=== PATIENT | male | born 1975 | race Caucasian/White ===

== ENCOUNTER 2020-09-09 09:57 | Inpatient (IN) | payer MEDICAID ==
[~2020-09-09] VITALS: Ht 175.3 cm; Wt 108.5 kg
[2020-09-09 11:16] LABS: BASOPHILS % (AUTO) 0.6 % (0.0-2.0); EOSINOPHILS % (AUTO) 0.3 % (1.0-6.0); HEMATOCRIT 40.1 % (41-53); HEMOGLOBIN 13.7 g/dL (13.5-17.5); LYMPHOCYTES # (AUTO) 1.2 K/uL (1.0-4.8); LYMPHOCYTES % (AUTO) 8.9 % (22.0-44.0); MEAN CORPUSCULAR HEMOGLOBIN 25.5 pg (26.0-34.0); MEAN CORPUSCULAR HGB CONC 34.1 G/dL (31.0-37.0); MEAN CORPUSCULAR VOLUME 75 fL (80-100); MONOCYTES # (AUTO) 0.9 K/uL (0.1-1.0); MONOCYTES % (AUTO) 6.3 % (2.0-9.0); NEUTROPHILS # (AUTO) 11.5 K/uL (1.8-7.7); NEUTROPHILS % (AUTO) 83.9 % (40.0-70.0); PLATELET COUNT (AUTO) 386 K/uL (150-450); RED BLOOD CELL COUNT(AUTO) 5.37 MIL/uL (4.50-5.90); RED CELL DISTRIBUTION WIDTH 17.2 % (11.5-14.5)
[2020-09-09 11:27] LABS: ANION GAP 9 mmol/L (8-16); CALCIUM, TOTAL 9.2 mg/dL (8.8-10.5); CARBON DIOXIDE 23 mmol/L (22-29); CHLORIDE 106 mmol/L (98-107); CREATININE 0.74 mg/dL (0.60-1.30); GLOMERULAR FILTR. RATE CALC > 60 mL/min (>60); GLUCOSE,RANDOM 124 mg/dL (70-110); POTASSIUM 3.2 mmol/L (3.5-5.1); SODIUM SERUM 138 mmol/L (136-145); UREA NITROGEN, BLOOD 11 mg/dL (7-18)
[2020-09-09 11:33] LABS: ALANINE AMINOTRANSFERASE 31 U/L (12-78); ALKALINE PHOSPHATASE 114 U/L (46-116); ASPARTATE AMINOTRANSFERASE 25 U/L (15-37); BILIRUBIN,TOTAL 0.6 mg/dL (0.1-1.0); TOTAL PROTEIN, SERUM 7.3 g/dL (6.4-8.2)
[2020-09-09] MEDS: POTASSIUM CHLORIDE 10% 40 MEQ/30 ML LIQUID UDCUP PO ONE ×2 (12:04→12:08)
[2020-09-09 14:39] LABS: COVID AG,FIA SOURCE NASOPHARYNGEAL
[2020-09-09] MEDS ORDERED: HALOPERIDOL LACTATE 5 MG/ML VIAL IM ONE (17:45)
[2020-09-09] MEDS ORDERED: LORazepam 2 MG/ML VIAL IM ONE (17:45)
[2020-09-09] MEDS ORDERED: DiphenhydrAMINE HCL 50 MG/ML VIAL IM ONE (17:45)
[2020-09-09] MEDS: HALOPERIDOL 5 MG TABLET PO PRN (22:30)
[2020-09-09] MEDS: LORazepam 2 MG TABLET PO PRN (22:30)
[2020-09-10] MEDS ORDERED: MIDAZOLAM HCL 5 MG/ML VIAL IM ONE (00:15)
[2020-09-10] MEDS: LORazepam 2 MG TABLET PO PRN ×3 (03:24→22:53)
[2020-09-10] MEDS: HALOPERIDOL 5 MG TABLET PO PRN ×2 (03:24→07:57)
[2020-09-10 03:42] VITALS: BP 144/77
[2020-09-10] MEDS ORDERED: MAGNESIUM HYDROXIDE SUSPENSION 30 ML UDCUP PO PRN (08:00)
[2020-09-10] MEDS ORDERED: LOPERAMIDE HCL 2 MG CAPSULE PO PRN (08:00)
[2020-09-10] MEDS ORDERED: PETROLATUM,WHITE 28 GM JELLY TP PRN (08:00)
[2020-09-10] MEDS ORDERED: NICOTINE 14 MG/24 HOUR PATCH TD PRN (08:00)
[2020-09-10] MEDS ORDERED: CloNIDine HCL 0.1 MG TABLET PO PRN (08:00)
[2020-09-10] MEDS ORDERED: DOCUSATE SODIUM 100 MG CAPSULE PO PRN (08:00)
[2020-09-10] MEDS ORDERED: GuaiFENesin/D-METHORPHAN [SUGAR-FREE] 200-20MG/10 ML SYRUP UDCUP PO PRN (08:00)
[2020-09-10] MEDS ORDERED: ACETAMINOPHEN 325 MG TABLET PO PRN (08:00)
[2020-09-10] MEDS ORDERED: ONDANSETRON HCL 4 MG TABLET PO PRN (08:00)
[2020-09-10] MEDS ORDERED: MAG HYDROX/AL HYDROX/SIMETH ES 30 ML SUSPENSION UDCUP PO PRN (08:00)
[2020-09-10] MEDS ORDERED: ALBUTEROL SULFATE HFA 90 MCG/PUFF 8 GM INHALER IH PRN (08:00)
[2020-09-10 09:30] VITALS: BP 119/51
[2020-09-10 09:37] VITALS: BP 119/51
[2020-09-10 09:45] VITALS: BP 122/68
[2020-09-10] MEDS ORDERED: LORazepam 2 MG/ML VIAL ONE (10:55)
[2020-09-10] MEDS ORDERED: HALOPERIDOL LACTATE 5 MG/ML VIAL ONE (10:55)
[2020-09-10] MEDS ORDERED: DiphenhydrAMINE HCL 50 MG/ML VIAL ONE (10:55)
[2020-09-10] MEDS ORDERED: LORazepam 2 MG/ML VIAL IM ONE (11:00)
[2020-09-10] MEDS ORDERED: DiphenhydrAMINE HCL 50 MG/ML VIAL IM ONE (11:00)
[2020-09-10] MEDS ORDERED: HALOPERIDOL LACTATE 5 MG/ML VIAL IM ONE (11:00)
[2020-09-10 16:05] VITALS: BP 147/96
[2020-09-10] MEDS: GABAPENTIN 300 MG CAPSULE PO SCH (17:20)
[2020-09-10] MEDS: OLANZapine 10 MG TABLET PO SCH (17:20)
[2020-09-10] MEDS: IBUPROFEN 400 MG TABLET PO PRN (18:09)
[2020-09-10 18:38] VITALS: BP 138/92
[2020-09-10] MEDS: ZOLPIDEM TARTRATE 10 MG TABLET PO PRN (21:10)
[2020-09-11] MEDS: HALOPERIDOL 5 MG TABLET PO PRN ×5 (05:59→23:30)
[2020-09-11 06:06] VITALS: BP 128/78
[2020-09-11 06:46] LABS: BASOPHILS % (AUTO) 0.6 % (0.0-2.0); EOSINOPHILS % (AUTO) 1.9 % (1.0-6.0); HEMATOCRIT 39.4 % (41-53); HEMOGLOBIN 13.4 g/dL (13.5-17.5); LYMPHOCYTES # (AUTO) 1.6 K/uL (1.0-4.8); LYMPHOCYTES % (AUTO) 17.4 % (22.0-44.0); MEAN CORPUSCULAR HEMOGLOBIN 25.4 pg (26.0-34.0); MEAN CORPUSCULAR HGB CONC 33.9 G/dL (31.0-37.0); MEAN CORPUSCULAR VOLUME 75 fL (80-100); MONOCYTES # (AUTO) 0.8 K/uL (0.1-1.0); MONOCYTES % (AUTO) 8.5 % (2.0-9.0); NEUTROPHILS # (AUTO) 6.6 K/uL (1.8-7.7); NEUTROPHILS % (AUTO) 71.6 % (40.0-70.0); PLATELET COUNT (AUTO) 389 K/uL (150-450); RED BLOOD CELL COUNT(AUTO) 5.28 MIL/uL (4.50-5.90); RED CELL DISTRIBUTION WIDTH 17.2 % (11.5-14.5)
[2020-09-11 06:55] LABS: HEMOGLOBIN A1C 5.5 % (3.8-5.6)
[2020-09-11 07:12] LABS: ALANINE AMINOTRANSFERASE 37 U/L (12-78); ALBUMIN 3.7 g/dL (3.4-5.0); ALKALINE PHOSPHATASE 119 U/L (46-116); ANION GAP 12 mmol/L (8-16); ASPARTATE AMINOTRANSFERASE 44 U/L (15-37); BILIRUBIN,TOTAL 0.5 mg/dL (0.1-1.0); CALCIUM, TOTAL 9.1 mg/dL (8.8-10.5); CARBON DIOXIDE 24 mmol/L (22-29); CHLORIDE 104 mmol/L (98-107); CHOL/HDL RATIO 5.2 (4.2-7.3); CHOLESTEROL 187 mg/dL (131-200); GLOMERULAR FILTR. RATE CALC > 60 mL/min (>60); GLUCOSE,RANDOM 122 mg/dL (70-110); HDL CHOLESTEROL 36 mg/dL (40-60); LDL CHOL (CALC.) 130 mg/dL (0-130); POTASSIUM 3.5 mmol/L (3.5-5.1); SODIUM SERUM 140 mmol/L (136-145); THYROID STIMULATING HORMONE 2.88 uIU/mL (0.36-3.74); TOTAL PROTEIN, SERUM 7.2 g/dL (6.4-8.2); TRIGLYCERIDES 106 mg/dL (15-150); UREA NITROGEN, BLOOD 10 mg/dL (7-18)
[2020-09-11] MEDS: LORazepam 2 MG TABLET PO PRN ×5 (07:35→23:30)
[2020-09-11] MEDS: GABAPENTIN 300 MG CAPSULE PO SCH ×2 (07:35→16:35)
[2020-09-11] MEDS: OLANZapine 10 MG TABLET PO SCH ×2 (07:35→16:35)
[2020-09-11 08:01] VITALS: BP 152/93
[2020-09-11 16:12] VITALS: BP 148/92
[2020-09-11 18:33] VITALS: BP 136/86
[2020-09-11] MEDS: IBUPROFEN 400 MG TABLET PO PRN (18:33)
[2020-09-11] MEDS: ZOLPIDEM TARTRATE 10 MG TABLET PO PRN (20:17)
[2020-09-12] MEDS: GABAPENTIN 300 MG CAPSULE PO SCH ×2 (07:18→16:11)
[2020-09-12] MEDS: HALOPERIDOL 5 MG TABLET PO PRN ×3 (07:18→19:31)
[2020-09-12] MEDS: LORazepam 2 MG TABLET PO PRN ×3 (07:18→20:10)
[2020-09-12] MEDS: OLANZapine 10 MG TABLET PO SCH ×2 (07:18→16:11)
[2020-09-12 10:24] VITALS: BP 130/90
[2020-09-12 16:33] VITALS: BP 106/58
[2020-09-12] MEDS: IBUPROFEN 400 MG TABLET PO PRN (19:30)
[2020-09-12] MEDS: ZOLPIDEM TARTRATE 10 MG TABLET PO PRN (21:47)
[2020-09-13] MEDS: LORazepam 2 MG TABLET PO PRN ×3 (07:47→16:39)
[2020-09-13] MEDS: OLANZapine 10 MG TABLET PO SCH ×2 (08:17→16:39)
[2020-09-13] MEDS: GABAPENTIN 300 MG CAPSULE PO SCH ×2 (08:17→16:39)
[2020-09-13 08:57] VITALS: BP 128/73
[2020-09-13] MEDS: HALOPERIDOL 5 MG TABLET PO PRN ×2 (11:50→16:39)
[2020-09-13 16:12] VITALS: BP 133/92
[2020-09-14] MEDS: LORazepam 2 MG TABLET PO PRN ×3 (07:24→18:10)
[2020-09-14] MEDS: OLANZapine 10 MG TABLET PO SCH ×2 (07:24→16:48)
[2020-09-14] MEDS: GABAPENTIN 300 MG CAPSULE PO SCH ×2 (07:24→16:48)
[2020-09-14] MEDS: HALOPERIDOL 5 MG TABLET PO PRN ×3 (07:24→18:10)
[2020-09-14 12:37] VITALS: BP 143/74
[2020-09-14 16:13] VITALS: BP 133/89
[2020-09-14 18:06] VITALS: BP 136/88
[2020-09-14] MEDS: IBUPROFEN 400 MG TABLET PO PRN (18:10)
[2020-09-15] MEDS: OLANZapine 10 MG TABLET PO SCH ×2 (07:57→16:11)
[2020-09-15] MEDS: LORazepam 2 MG TABLET PO PRN ×2 (07:58→14:18)
[2020-09-15] MEDS: HALOPERIDOL 5 MG TABLET PO PRN ×2 (07:58→14:18)
[2020-09-15] MEDS: GABAPENTIN 300 MG CAPSULE PO SCH ×2 (07:58→16:11)
[2020-09-15 08:35] VITALS: BP 132/74
[2020-09-15 16:27] VITALS: BP 135/89
[2020-09-15 16:28] VITALS: BP 135/89
[2020-09-16] MEDS: HALOPERIDOL 5 MG TABLET PO PRN ×3 (08:01→19:06)
[2020-09-16] MEDS: GABAPENTIN 300 MG CAPSULE PO SCH ×2 (08:01→16:27)
[2020-09-16] MEDS: OLANZapine 10 MG TABLET PO SCH ×2 (08:01→16:27)
[2020-09-16] MEDS: LORazepam 2 MG TABLET PO PRN ×3 (08:01→19:06)
[2020-09-16 08:02] VITALS: BP 166/111
[2020-09-16 16:21] VITALS: BP 125/87
[2020-09-17] MEDS: LORazepam 2 MG TABLET PO PRN ×2 (07:41→17:24)
[2020-09-17] MEDS: HALOPERIDOL 5 MG TABLET PO PRN ×2 (07:41→17:24)
[2020-09-17] MEDS: OLANZapine 10 MG TABLET PO SCH ×2 (08:39→17:21)
[2020-09-17] MEDS: GABAPENTIN 300 MG CAPSULE PO SCH ×2 (08:39→17:21)
[2020-09-17 18:07] VITALS: BP 137/62
[2020-09-18] MEDS: GABAPENTIN 300 MG CAPSULE PO SCH ×2 (08:02→16:07)
[2020-09-18] MEDS: OLANZapine 10 MG TABLET PO SCH ×2 (08:02→16:07)
[2020-09-18] MEDS: LORazepam 2 MG TABLET PO PRN ×3 (08:03→18:44)
[2020-09-18 08:06] VITALS: BP 103/75
[2020-09-18 16:14] VITALS: BP 119/72
[2020-09-18 18:40] VITALS: BP 157/81
[2020-09-18] MEDS: HALOPERIDOL 5 MG TABLET PO PRN (18:44)
[2020-09-19] MEDS: LORazepam 2 MG TABLET PO PRN ×2 (07:59→20:33)
[2020-09-19] MEDS: HALOPERIDOL 5 MG TABLET PO PRN ×2 (07:59→16:03)
[2020-09-19] MEDS: OLANZapine 10 MG TABLET PO SCH ×2 (08:00→16:03)
[2020-09-19] MEDS: GABAPENTIN 300 MG CAPSULE PO SCH ×2 (08:00→16:03)
[2020-09-19 08:05] VITALS: BP 110/61
[2020-09-19 16:22] VITALS: BP 131/91
[2020-09-19] MEDS ORDERED: LORazepam 2 MG TABLET PO PRN (16:30)
[2020-09-19] MEDS: ZOLPIDEM TARTRATE 10 MG TABLET PO PRN (20:33)
[2020-09-20 01:01] VITALS: BP 103/46
[2020-09-20] MEDS: HALOPERIDOL 5 MG TABLET PO PRN ×2 (01:02→07:42)
[2020-09-20] MEDS: LORazepam 2 MG TABLET PO PRN ×3 (01:02→23:42)
[2020-09-20 08:16] VITALS: BP 126/72
[2020-09-20] MEDS: OLANZapine 10 MG TABLET PO SCH ×2 (08:45→16:11)
[2020-09-20] MEDS: GABAPENTIN 300 MG CAPSULE PO SCH ×2 (08:45→16:11)
[2020-09-20 16:37] VITALS: BP 133/76
[2020-09-20] MEDS: ZOLPIDEM TARTRATE 10 MG TABLET PO PRN (23:42)
[2020-09-21] MEDS: HALOPERIDOL 5 MG TABLET PO PRN (07:44)
[2020-09-21] MEDS: OLANZapine 10 MG TABLET PO SCH ×2 (07:44→16:41)
[2020-09-21] MEDS: LORazepam 2 MG TABLET PO PRN (07:45)
[2020-09-21] MEDS: GABAPENTIN 300 MG CAPSULE PO SCH ×2 (07:45→16:41)
[2020-09-21 09:18] VITALS: BP 121/64
[2020-09-21 16:02] VITALS: BP 129/89
[2020-09-22] MEDS: ZOLPIDEM TARTRATE 10 MG TABLET PO PRN (00:34)
[2020-09-22 00:37] VITALS: BP 123/83
[2020-09-22] MEDS: LORazepam 2 MG TABLET PO PRN ×2 (07:50→14:29)
[2020-09-22] MEDS: OLANZapine 10 MG TABLET PO SCH ×2 (07:50→16:26)
[2020-09-22] MEDS: GABAPENTIN 300 MG CAPSULE PO SCH ×2 (07:50→16:26)
[2020-09-22] MEDS: HALOPERIDOL 5 MG TABLET PO PRN ×2 (07:50→14:29)
[2020-09-22 09:58] VITALS: BP 154/99
[2020-09-22 16:03] VITALS: BP 115/60
[2020-09-23] MEDS: ZOLPIDEM TARTRATE 10 MG TABLET PO PRN (01:44)
[2020-09-23] MEDS: HALOPERIDOL 5 MG TABLET PO PRN (07:46)
[2020-09-23] MEDS: LORazepam 2 MG TABLET PO PRN (07:46)
[2020-09-23] MEDS: GABAPENTIN 300 MG CAPSULE PO SCH ×2 (08:09→16:46)
[2020-09-23] MEDS: OLANZapine 10 MG TABLET PO SCH ×2 (08:09→16:46)
[2020-09-23 08:42] VITALS: BP 159/88
[2020-09-23] MEDS ORDERED: FUROSEMIDE 20 MG TABLET PO ONE (14:00)
[2020-09-23 16:15] VITALS: BP 121/77
[2020-09-23] MEDS: CEPHALEXIN MONOHYDRATE 500 MG CAPSULE PO SCH (16:46)
[2020-09-23] MEDS: SULFAMETHOX/TRIMETH DS 800-160 MG/TABLET PO SCH (16:46)
[2020-09-24 01:22] VITALS: BP 134/95
[2020-09-24] MEDS: SULFAMETHOX/TRIMETH DS 800-160 MG/TABLET PO SCH (08:28)
[2020-09-24] MEDS: CEPHALEXIN MONOHYDRATE 500 MG CAPSULE PO SCH ×2 (08:28→12:36)
[2020-09-24] MEDS: LORazepam 2 MG TABLET PO PRN ×2 (08:28→12:36)
[2020-09-24] MEDS: OLANZapine 10 MG TABLET PO SCH (08:28)
[2020-09-24] MEDS: GABAPENTIN 300 MG CAPSULE PO SCH (08:28)
[2020-09-24] MEDS: HALOPERIDOL 5 MG TABLET PO PRN ×2 (08:30→12:36)
[2020-09-24 09:14] VITALS: BP 127/80
[2020-09-24] MEDS ORDERED: OLAN10TA3 PO (12:02)
[2020-09-24] MEDS ORDERED: GABA-1181 PO (12:02)
[2020-09-24] MEDS ORDERED: CEPH-582 PO (12:03)
[2020-09-24] MEDS ORDERED: BACTDSB PO (12:05)
== END 2020-09-24 14:30 | disposition home or self-care (01) | DRG 750 ==
LOC: EMS 09:57 → 3EC 13:59 → 6N 14:30 → UNDOADMIN 14:30
PROVIDERS: ADMIT Psychiatry & Neurology Psychiatry; ATTEND Psychiatry & Neurology Psychiatry
DX: F25.0 Schizoaffective disorder, bipolar type (principal); Z91.5 Personal history of self-harm; D72.829 Elevated white blood cell count, unspecified; R03.0 Elevated blood-pressure reading, without diagnosis of hypertension; E87.6 Hypokalemia; F10.10 Alcohol abuse, uncomplicated; F19.10 Other psychoactive substance abuse, uncomplicated; F17.200 Nicotine dependence, unspecified, uncomplicated; F32.9 Major depressive disorder, single episode, unspecified; R45.851 Suicidal ideations; Y90.9 Presence of alcohol in blood, level not specified; L03.119 Cellulitis of unspecified part of limb; Z20.828 Contact with and (suspected) exposure to other viral communicable diseases
CPT/HCPCS: 83036; 84443; 87426; G0480; J1200; J1630; J2060; J2250

== ENCOUNTER 2020-10-04 07:59 | Inpatient (IN) | payer MEDICAID ==
[~2020-10-04] VITALS: Ht 188 cm; Wt 111.8 kg
[~2020-10-04 07:59] MED LIST: BACTDSB PO; CEPH-582 PO; GABA-1181 PO; OLAN10TA3 PO
[2020-10-04 08:40] LABS: BASOPHILS % (AUTO) 0.7 % (0.0-2.0); EOSINOPHILS % (AUTO) 1.5 % (1.0-6.0); HEMATOCRIT 40.5 % (41-53); HEMOGLOBIN 13.6 g/dL (13.5-17.5); LYMPHOCYTES # (AUTO) 0.9 K/uL (1.0-4.8); LYMPHOCYTES % (AUTO) 11.4 % (22.0-44.0); MEAN CORPUSCULAR HEMOGLOBIN 25.7 pg (26.0-34.0); MEAN CORPUSCULAR HGB CONC 33.6 G/dL (31.0-37.0); MEAN CORPUSCULAR VOLUME 76 fL (80-100); MONOCYTES # (AUTO) 0.4 K/uL (0.1-1.0); MONOCYTES % (AUTO) 5.2 % (2.0-9.0); NEUTROPHILS # (AUTO) 6.3 K/uL (1.8-7.7); NEUTROPHILS % (AUTO) 81.2 % (40.0-70.0); PLATELET COUNT (AUTO) 289 K/uL (150-450); RED CELL DISTRIBUTION WIDTH 17.4 % (11.5-14.5)
[2020-10-04 08:50] LABS: ANION GAP 12 mmol/L (8-16); CARBON DIOXIDE 23 mmol/L (22-29); CHLORIDE 110 mmol/L (98-107); CREATININE 0.88 mg/dL (0.60-1.30); GLOMERULAR FILTR. RATE CALC > 60 mL/min (>60); GLUCOSE,RANDOM 179 mg/dL (70-110); POTASSIUM 3.6 mmol/L (3.5-5.1); SODIUM SERUM 145 mmol/L (136-145); UREA NITROGEN, BLOOD 13 mg/dL (7-18)
[2020-10-04 08:56] LABS: ALANINE AMINOTRANSFERASE 30 U/L (12-78); ALBUMIN 3.6 g/dL (3.4-5.0); ALKALINE PHOSPHATASE 149 U/L (46-116); ASPARTATE AMINOTRANSFERASE 14 U/L (15-37); BILIRUBIN,TOTAL 0.5 mg/dL (0.1-1.0); TOTAL PROTEIN, SERUM 6.9 g/dL (6.4-8.2)
[2020-10-04] MEDS ORDERED: LORazepam 2 MG/ML VIAL IM ONE (09:00)
[2020-10-04] MEDS ORDERED: HALOPERIDOL LACTATE 5 MG/ML VIAL IM ONE (09:00)
[2020-10-04] MEDS ORDERED: DiphenhydrAMINE HCL 50 MG/ML VIAL IM ONE (09:00)
[2020-10-04 09:15] LABS: CHOL/HDL RATIO 4.4 (4.2-7.3); CHOLESTEROL 180 mg/dL (131-200); HDL CHOLESTEROL 41 mg/dL (40-60); LDL CHOL (CALC.) 112 mg/dL (0-130); TRIGLYCERIDES 136 mg/dL (15-150)
[2020-10-04] MEDS ORDERED: ZOLPIDEM TARTRATE 10 MG TABLET PO PRN (11:45)
[2020-10-04 17:06] LABS: COVID AG,FIA SOURCE NASOPHARYNGEAL
[2020-10-05 05:42] LABS: AMPHET/METH SCREEN,URINE NEGATIVE (NEGATIVE); BARBITURATE SCREEN, URINE NEGATIVE (NEGATIVE); BENZODIAZEPINES SCREEN,URINE NEGATIVE (NEGATIVE); CANNABINOID SCREEN,URINE NEGATIVE (NEGATIVE); COCAINE SCREEN,URINE NEGATIVE (NEGATIVE); METHADONE SCREEN, URINE NEGATIVE (NEGATIVE); OPIATE SCREEN,URINE NEGATIVE (NEGATIVE)
[2020-10-05 05:46] LABS: PHENCYCLIDINE SCREEN,URINE NEGATIVE (NEGATIVE)
[2020-10-05] MEDS ORDERED: ALBUTEROL SULFATE HFA 90 MCG/PUFF 8 GM INHALER IH PRN (08:15)
[2020-10-05] MEDS ORDERED: ACETAMINOPHEN 325 MG TABLET PO PRN (08:15)
[2020-10-05] MEDS ORDERED: PETROLATUM,WHITE 28 GM JELLY TP PRN (08:15)
[2020-10-05] MEDS ORDERED: DOCUSATE SODIUM 100 MG CAPSULE PO PRN (08:15)
[2020-10-05] MEDS ORDERED: GuaiFENesin/D-METHORPHAN [SUGAR-FREE] 200-20MG/10 ML SYRUP UDCUP PO PRN (08:15)
[2020-10-05] MEDS ORDERED: CloNIDine HCL 0.1 MG TABLET PO PRN (08:15)
[2020-10-05] MEDS ORDERED: ONDANSETRON HCL 4 MG TABLET PO PRN (08:15)
[2020-10-05] MEDS ORDERED: MAG HYDROX/AL HYDROX/SIMETH ES 30 ML SUSPENSION UDCUP PO PRN (08:15)
[2020-10-05] MEDS ORDERED: LOPERAMIDE HCL 2 MG CAPSULE PO PRN (08:15)
[2020-10-05] MEDS ORDERED: NICOTINE 14 MG/24 HOUR PATCH TD PRN (08:15)
[2020-10-05] MEDS ORDERED: MAGNESIUM HYDROXIDE SUSPENSION 30 ML UDCUP PO PRN (08:15)
[2020-10-05] MEDS: LORazepam 2 MG TABLET PO PRN ×2 (08:52→19:55)
[2020-10-05] MEDS: HALOPERIDOL 5 MG TABLET PO PRN ×2 (08:53→19:55)
[2020-10-06 15:33] VITALS: BP 136/88
[2020-10-06] MEDS: LORazepam 2 MG TABLET PO PRN (16:04)
[2020-10-06] MEDS: HALOPERIDOL 5 MG TABLET PO PRN (16:05)
[2020-10-06] MEDS ORDERED: INFLUENZA VIRUS VACCINE QVS 2020-21 (6MO+)/PF 60 MCG/0.5 ML SYRINGE IM ONE (19:15)
[2020-10-07] MEDS: GABAPENTIN 300 MG CAPSULE PO SCH ×2 (08:06→16:25)
[2020-10-07] MEDS: OLANZapine 10 MG TABLET PO SCH ×2 (08:06→16:25)
[2020-10-07 08:07] VITALS: BP 109/70
[2020-10-07] MEDS: LORazepam 2 MG TABLET PO PRN ×2 (08:08→16:25)
[2020-10-07 16:09] VITALS: BP 100/65
[2020-10-08 06:31] VITALS: BP 112/74
[2020-10-08] MEDS: GABAPENTIN 300 MG CAPSULE PO SCH ×2 (08:40→17:36)
[2020-10-08] MEDS: LORazepam 2 MG TABLET PO PRN ×2 (08:40→21:06)
[2020-10-08] MEDS: OLANZapine 10 MG TABLET PO SCH ×2 (08:40→17:36)
[2020-10-08 09:57] VITALS: BP 145/92
[2020-10-08 16:21] VITALS: BP 114/80
[2020-10-09 04:54] VITALS: BP 124/67
[2020-10-09 08:11] VITALS: BP 107/66
[2020-10-09] MEDS: OLANZapine 10 MG TABLET PO SCH ×2 (08:19→16:29)
[2020-10-09] MEDS: GABAPENTIN 300 MG CAPSULE PO SCH ×2 (08:20→16:29)
[2020-10-09] MEDS: LORazepam 2 MG TABLET PO PRN ×2 (08:20→16:29)
[2020-10-09 16:29] VITALS: BP 101/68
[2020-10-10 04:00] VITALS: BP 112/71
[2020-10-10 08:11] VITALS: BP 110/66
[2020-10-10] MEDS: OLANZapine 10 MG TABLET PO SCH ×2 (08:31→16:12)
[2020-10-10] MEDS: LORazepam 2 MG TABLET PO PRN ×2 (08:31→16:12)
[2020-10-10] MEDS: GABAPENTIN 300 MG CAPSULE PO SCH ×2 (08:31→16:12)
[2020-10-10 16:20] VITALS: BP 113/71
[2020-10-11 08:11] VITALS: BP 123/66
[2020-10-11] MEDS: LORazepam 2 MG TABLET PO PRN ×2 (09:03→15:01)
[2020-10-11] MEDS: GABAPENTIN 300 MG CAPSULE PO SCH ×2 (09:03→16:40)
[2020-10-11] MEDS: OLANZapine 10 MG TABLET PO SCH ×2 (09:03→16:40)
[2020-10-11] MEDS: IBUPROFEN 400 MG TABLET PO PRN (15:01)
[2020-10-11] MEDS: HALOPERIDOL 5 MG TABLET PO PRN (15:01)
[2020-10-12 08:43] VITALS: BP 131/80
[2020-10-12] MEDS: GABAPENTIN 300 MG CAPSULE PO SCH ×2 (08:55→17:03)
[2020-10-12] MEDS: HALOPERIDOL 5 MG TABLET PO PRN (08:56)
[2020-10-12] MEDS: OLANZapine 10 MG TABLET PO SCH ×2 (08:56→17:03)
[2020-10-12] MEDS: LORazepam 2 MG TABLET PO PRN (08:56)
[2020-10-12 16:13] VITALS: BP 107/68
[2020-10-13 04:43] VITALS: BP 112/72
[2020-10-13] MEDS: GABAPENTIN 300 MG CAPSULE PO SCH ×2 (08:34→16:37)
[2020-10-13] MEDS: OLANZapine 10 MG TABLET PO SCH ×2 (08:34→16:37)
[2020-10-13] MEDS: LORazepam 2 MG TABLET PO PRN ×2 (08:34→16:37)
[2020-10-13 09:07] VITALS: BP 119/80
[2020-10-13 15:24] VITALS: BP 104/72
[2020-10-13] MEDS: IBUPROFEN 400 MG TABLET PO PRN (15:24)
[2020-10-13 16:21] VITALS: BP 109/72
[2020-10-14 02:25] VITALS: BP 117/74
[2020-10-14 08:09] VITALS: BP 110/68
[2020-10-14] MEDS: GABAPENTIN 300 MG CAPSULE PO SCH ×2 (08:12→16:20)
[2020-10-14] MEDS: OLANZapine 10 MG TABLET PO SCH ×2 (08:18→16:20)
[2020-10-14] MEDS: HALOPERIDOL 5 MG TABLET PO PRN (08:18)
[2020-10-14] MEDS: LORazepam 2 MG TABLET PO PRN ×2 (08:18→16:20)
[2020-10-14 16:39] VITALS: BP 102/69
[2020-10-15 04:53] VITALS: BP 114/64
[2020-10-15 08:09] VITALS: BP 116/73
[2020-10-15] MEDS: HALOPERIDOL 5 MG TABLET PO PRN ×2 (08:33→16:08)
[2020-10-15] MEDS: OLANZapine 10 MG TABLET PO SCH ×2 (08:33→16:08)
[2020-10-15] MEDS: GABAPENTIN 300 MG CAPSULE PO SCH ×2 (08:33→16:08)
[2020-10-15] MEDS: LORazepam 2 MG TABLET PO PRN ×2 (08:33→16:08)
[2020-10-15 19:53] VITALS: BP 123/73
[2020-10-16 05:25] VITALS: BP 118/71
[2020-10-16] MEDS: GABAPENTIN 300 MG CAPSULE PO SCH ×2 (09:07→17:09)
[2020-10-16] MEDS: OLANZapine 10 MG TABLET PO SCH ×2 (09:07→17:09)
[2020-10-16 16:21] VITALS: BP 116/72
[2020-10-17 00:24] VITALS: BP 139/89
[2020-10-17] MEDS: LORazepam 2 MG TABLET PO PRN ×3 (00:29→17:53)
[2020-10-17 08:42] VITALS: BP 143/89
[2020-10-17] MEDS: OLANZapine 10 MG TABLET PO SCH ×2 (09:22→16:37)
[2020-10-17] MEDS: GABAPENTIN 300 MG CAPSULE PO SCH ×2 (09:22→16:37)
[2020-10-17] MEDS: HALOPERIDOL 5 MG TABLET PO PRN ×2 (09:52→17:53)
[2020-10-17 19:30] VITALS: BP 117/70
[2020-10-17] MEDS ORDERED: DiphenhydrAMINE HCL 50 MG/ML VIAL IM ONE (19:30)
[2020-10-17] MEDS ORDERED: ChlorproMAZINE HCL 50 MG/2 ML AMP IM ONE (19:30)
[2020-10-17] MEDS ORDERED: LORazepam 2 MG/ML VIAL IM ONE (19:30)
[2020-10-17 20:00] VITALS: BP 107/73
[2020-10-18 06:13] VITALS: BP 104/71
[2020-10-18 08:01] VITALS: BP 111/70
[2020-10-18] MEDS: OLANZapine 10 MG TABLET PO SCH ×2 (08:36→16:44)
[2020-10-18] MEDS: GABAPENTIN 300 MG CAPSULE PO SCH ×2 (08:36→16:44)
[2020-10-18] MEDS ORDERED: LORazepam 2 MG/ML VIAL ONE (11:25)
[2020-10-18] MEDS ORDERED: LORazepam 2 MG/ML VIAL IM ONE (11:30)
[2020-10-18] MEDS ORDERED: DiphenhydrAMINE HCL 50 MG/ML VIAL IM ONE (11:30)
[2020-10-18] MEDS ORDERED: ChlorproMAZINE HCL 50 MG/2 ML AMP IM ONE (11:30)
[2020-10-18] MEDS: HALOPERIDOL 5 MG TABLET PO PRN (16:44)
[2020-10-18] MEDS: LORazepam 2 MG TABLET PO PRN (16:44)
[2020-10-19 08:18] VITALS: BP 103/61
[2020-10-19] MEDS: GABAPENTIN 300 MG CAPSULE PO SCH ×2 (08:26→16:49)
[2020-10-19] MEDS: OLANZapine 10 MG TABLET PO SCH ×2 (08:26→16:49)
[2020-10-19 16:14] VITALS: BP 104/62
[2020-10-19] MEDS: HALOPERIDOL 5 MG TABLET PO PRN (16:49)
[2020-10-19] MEDS: LORazepam 2 MG TABLET PO PRN (16:49)
[2020-10-20 01:31] VITALS: BP 116/68
[2020-10-20 08:14] VITALS: BP 122/76
[2020-10-20] MEDS: OLANZapine 10 MG TABLET PO SCH ×2 (08:47→16:35)
[2020-10-20] MEDS: GABAPENTIN 300 MG CAPSULE PO SCH ×2 (08:47→16:35)
[2020-10-20 16:01] VITALS: BP 121/88
[2020-10-20] MEDS: HALOPERIDOL 5 MG TABLET PO PRN (16:35)
[2020-10-20] MEDS: LORazepam 2 MG TABLET PO PRN (16:35)
[2020-10-20 20:37] LABS: COVID AG,FIA SOURCE NASOPHARYNGEAL
[2020-10-21 05:26] VITALS: BP 119/81
[2020-10-21 08:04] VITALS: BP 114/70
[2020-10-21] MEDS: GABAPENTIN 300 MG CAPSULE PO SCH (09:11)
[2020-10-21] MEDS: HALOPERIDOL 5 MG TABLET PO PRN (09:12)
[2020-10-21] MEDS: OLANZapine 10 MG TABLET PO SCH (09:12)
[2020-10-21] MEDS: LORazepam 2 MG TABLET PO PRN (09:12)
== END 2020-10-21 13:15 | disposition home or self-care (01) | DRG 750 ==
LOC: EMS 07:59 → B3A 10-05 11:42
PROVIDERS: ADMIT Psychiatry & Neurology Psychiatry; ATTEND Psychiatry & Neurology Psychiatry
DX: F20.0 Paranoid schizophrenia (principal); I10 Essential (primary) hypertension; R45.851 Suicidal ideations; F19.10 Other psychoactive substance abuse, uncomplicated; F10.10 Alcohol abuse, uncomplicated; F32.9 Major depressive disorder, single episode, unspecified; R73.9 Hyperglycemia, unspecified; Z20.828 Contact with and (suspected) exposure to other viral communicable diseases; Z28.21 Immunization not carried out because of patient refusal; Z79.899 Other long term (current) drug therapy
CPT/HCPCS: 83036; 87081; 87426; 96372; 99291; G0480; J1200; J1630; J2060; J3230

== ENCOUNTER 2022-05-08 09:16 | Emergency (ER) | payer MEDICAID ==
[~2022-05-08] VITALS: Ht 188 cm; Wt 113.6 kg
[~2022-05-08 09:16] MED LIST changes: -BACTDSB PO; -CEPH-582 PO; -OLAN10TA3 PO; +OLAN10TA74 PO
[2022-05-08 11:09] VITALS: BP 120/62
== END 2022-05-08 11:09 | disposition home or self-care (01) ==
LOC: EMS 09:16
DX: F25.9 Schizoaffective disorder, unspecified (principal); F32.A Depression, unspecified
CPT/HCPCS: 99283